=== PATIENT | female | born 1940 | race Caucasian/White ===

== ENCOUNTER → 2023-09-25 10:05 | Outpatient (REF) | payer MEDICARE, OTHER, SELFPAY ==
[2023-09-25 10:42] LABS: Hematocrit 36.5 % (37.0-47.0); Hemoglobin 12.2 g/dL (12.0-16.0); Mean Corp Hgb Conc. 33.4 g/dL (33.0-37.0); Mean Corpuscular Hgb 30.6 pg (27.0-31.0); Mean Corpuscular Volume 91.5 fL (81.0-99.0); Mean Platelet Volume 10.1 fL (7.4-10.4); Platelet Count 187 10^3/uL (130-400); Red Blood Cell Count 3.99 10^6/uL (4.20-5.40); Red Cell Dist. Width 15.7 % (11.5-14.5); White Blood Cell Count 21.3 10^3/uL (4.8-10.8)
[2023-09-25 11:18] LABS: Absolute Neutrophils -Man Diff 5.9 10^3/uL (1.4-6.5); Band Neutrophils 0 % (0-3); Segmented Neutrophils 28 % (42-75)
[2023-09-25 11:19] LABS: Anisocytosis Occasional; Eosinophils 1 % (0-6); Lymphocytes 70 % (20-51); Monocytes 1 % (2-9); Normal RBC Morphology No; Platelets Checked Yes; Poikilocytosis 1+; Smudge Cells 1+; Total Cells Counted 100; Vacuolated Segs 1+
[2023-09-25 14:29] LABS: LDH 195 U/L (120-246)
== END ==
LOC: REG 10:05
PROVIDERS: ATTENDING PHYSICIAN Internal Medicine Hematology & Oncology; FAMILY PHYSICIAN Nurse Practitioner
DX: D72.829 Elevated white blood cell count, unspecified (principal); C91.10 Chronic lymphocytic leukemia of B-cell type not having achieved remission; R10.9 Unspecified abdominal pain
CPT/HCPCS: 36415; 83615; 85025

== ENCOUNTER 2023-10-23 08:17 | Emergency (ER) | payer MEDICARE, OTHER, SELFPAY ==
[2023-10-23 08:19] VITALS: BP 113/59; BMI 25.3
[2023-10-23 08:24] VITALS: BP 113/59
--- NOTE | 2023-10-23 08:40 | ED.GENMED ---
History of Present Illness
General
Chief Complaint: Fall
Source: patient and ambulance crew
Exam Limitations: none
Time Seen by Provider: 10/23/23 08:20
Nursing documentation reviewed up to this point in time: agreed with
Travel History
Have you had any contact with someone who has COVID-19?: No
Do you have any symptoms of coronavirus? Fever > 100 degrees, chills, cough, shortness of breath, sore throat, loss of taste or smell, muscle aches, or headache?: No
History of Present Illness
History of Present Illness:
83-year-old female presents emergency department due to a fall yesterday. She was walking on stairs yesterday and landed on her left buttock. She denies hitting her head or loss of consciousness. She takes Eliquis. Today she had severe pain in
her left hip/left buttock area. EMS arrived and stated patient ambulated to the ambulance with no issues.
Past History
Past History
ED Past Medical History: Hypercholesterolemia and Other (diverticulosis, hypercholesterolemia)
ED Past Surgical History: Other (varicose vein)
Social History
Tobacco: Non-smoker
Alcohol: None
Personal:
Living: with family
Employment: Retired
Family History
Family History: Other (Noncontributory)
Review of Systems
Review of Systems
Allergies reviewed?: Yes
All Other Systems: Not applicable
Constitutional: Reports no symptoms
EENT: Reports no symptoms
Respiratory: Reports no symptoms
Cardiac: Reports no symptoms
ABD/GI: Reports no symptoms
: Reports no symptoms
Musculoskeletal: Reports back pain and other (Left buttock pain)
Skin: Reports other (Bruising left buttock)
Neurological: Reports no symptoms
Endocrine: Reports no symptoms
Hematologic/Lymphatic: Reports no symptoms
Psychiatric: Reports no symptoms
Phy Exam
Physical Exam
Physical Exam:
Physical Exam
General: no apparent distress, not acutely ill
Neck: supple. no meningeal signs. normal posterior pharynx
Heart: s1/s2 regular rate and rhythm, no murmur. equal radial
pulses.
HEENT: Pupils equal round reactive to light, EOMI
Lungs: no acute respiratory distress. clear bilaterally
Abdomen: normal bowel sounds. not tender. no CVAT
Neuro: alert and oriented. no focal neurological deficits cranial nerves II through XII intact
Skin: no rash, hematoma left buttock
Psychiatric: well kept. interactive and cooperative
Extremities: no edema. no calf tenderness. negative homans. good distal pulses
Course
Orders/Labs/Results
Orders:
Orders
10/23/23 08:36
IV Insert/Care/Rem.- Treatment PRN
Lumbar Spine Complete, 4 View [CR Lumbar Spine Comp Min 4 Vw*] Urgent
Comment:
Reason For Exam: fall, low back/buttocks contusion
10/23/23 08:38
CT Head W/o Iv Contrast Urgent
Comment:
Reason For Exam: fall on eliquis
10/23/23 09:07
Complete Blood Count/With Diff Urgent
Comprehensive Metabolic Panel Urgent
10/23/23 11:08
Morphine Sulfate 4 mg IV NOW STA
Ondansetron Injectable [Zofran] 4 mg IV NOW STA
Abnormal Lab Results
10/23/23
09:07
WBC 24.2 H 10^3/uL
(4.8-10.8)
RBC 3.90 L 10^6/uL
(4.20-5.40)
Hct 34.9 L %
(37.0-47.0)
RDW 15.4 H %
(11.5-14.5)
Abs Immat Gran (auto) 0.1 H 10^3/uL
(0-0.05)
Absolute Neuts (auto) 8.6 H 10^3/uL
(1.4-6.5)
Absolute Lymphs (auto) 14.8 H 10^3/uL
(1.2-3.4)
Neutrophils % 35.5 L %
(42.2-75.2)
Lymphocytes % 61.2 H %
(20.5-51.1)
Sodium 132 L mmol/L
(135-145)
BUN 19 H mg/dl
(7-17)
Glucose 121 H mg/dl
(70-99)
Total Protein 6.0 L g/dl
(6.3-8.2)
10/23/23 09:07
10/23/23 09:07
Vital Signs
Initial and Last Documented VS:
Initial Vital Signs
Temp Pulse Resp BP Pulse Ox
97.5 F 69 16 113/59 100
10/23/23 08:19 10/23/23 08:19 10/23/23 08:19 10/23/23 08:19 10/23/23 08:19
Last Documented Vital Signs
Temp Pulse Resp BP Pulse Ox
97.5 F 72 22 98/84 98
10/23/23 08:19 10/23/23 12:15 10/23/23 12:15 10/23/23 12:00 10/23/23 12:15
MDM/Problems Addressed
Differential Diagnosis Includes:
Intracranial hemorrhage, lumbosacral fracture
MDM/Problems Addressed:
83-year-old female with fall, buttock hematoma, stable for discharge.
Chronic conditions affecting care: Arrhythmia and Cancer (CLL)
Acute Exacerbation and/or Progression of Chronic Illness: Arrhythmia
*Radiology
Radiology exam reviewed: radiology read reviewed (CT head no acute findings, lumbar x-ray no acute findings)
*Pulse Oximetry
Patient hypoxic: no
*EKG
Interpreted by ED Provider?: NA
*Gas Engine Operator Interpretation
Rate: Gas Engine Operator- N/A
*Critical Care Note
Total Time (30-74mins, 75-104mins- exclusive of procedures): Not Applicable
Data Reviewed
Review of Other/Old Records Reveals: Labs
Source: patient
Patient Management
Social determinants of health affecting care: Living situation
Escalation/DeEscalation of care consider admission/obs:
Admit not indicated
ED Attending Note
-
Portions of this chart may have been created with voice recognition software.� Occasional wrong word or��sound alike� substitutions may have occurred due to the inherent limitations of voice recognition software.
Discharge Plan
Departure
Patient Disposition: Home (Routine Discharge)
Date of Disposition: 10/23/23
Time of Disposition: 12:12
Patient with high blood pressure during this ER visit?: Yes
Condition: Good
Discharge Problem:
Hematoma of buttock, Fall
Instructions: Preventing falls in adults, BLOOD PRESSURE, Hematoma
Prescriptions:
No Action
magnesium 200 MG tablet
200 mg PO DAILY
ascorbic acid (vitamin C) [Vitamin C] 1,000 mg Tablet
1,000 mg PO DAILY
cyanocobalamin (vitamin B-12) 1,000 mcg Tablet
1,000 mcg PO DAILY
meclizine 12.5 mg Tablet
12.5 mg PO DAILY
therapeutic multivitamin Tablet
1 tab PO DAILY
coenzyme Q10 [CoQ-10] 100 mg Capsule
200 mg PO DAILY
cholecalciferol (vitamin D3) 125 mcg (5,000 unit) Tablet
125 mcg PO DAILY
Metamucil 3.4 gram/5.4 gram Powder
2 tsp PO DAILY@1200
Glucosamine Chondroitin 550-30-1 mg Capsule
2 cap PO DAILY
Glucosamine Chondroitin 550-30-1 mg Capsule
1 cap PO QPM
Eliquis 5 MG tablet
5 mg PO BID
metoprolol succinate 25 mg Tablet Extended Release 24 Hr
25 mg PO DAILY Qty: 60 0RF
propranolol 20 mg Tablet
20 mg PO Q4HPRN PRN (Reason: rapid heart rate/palpitations) Qty: 60 0RF
Referrals:
Adri Medeiros CRNP [Family Provider] -
Interventions
Interventions:
*Risk Screen - Suicide Last Done: 10/23/23 08:19
*General Assessment Last Done: 10/23/23 08:19
*Neglect/Abuse Screening Last Done: 10/23/23 08:19
ED- Fall Risk Assessment Last Done: 10/23/23 08:19
*ED COVID-19 Vaccine History Last Done: 10/23/23 08:19
*Nursing Disposition Last Done: 10/23/23 12:30
ED-Musculoskeletal Assessment Last Done: 10/23/23 08:19
ED- Neurological Assessment Last Done: 10/23/23 08:19
ED-Skin Assessment Last Done: 10/23/23 08:19
Discharge Date and Time
Discharge Date/Time: 10/23/23 12:38
[2023-10-23 09:06] VITALS: BP 133/65
--- NOTE | 2023-10-23 09:08 | EDRN ---
the pt returned from xray and CT scan, this RN placed the pt back on the monitor, no s/s of distress, the pt is resting in stretcher in the lowest position, side rails up x2, call camara within reach, HOB elevated, the pts son is currently at the pts
bedside, will continue to monitor the pt closely
[2023-10-23 09:17] LABS: % Basophils 0.5 % (0-2); % Eosinophils 0.2 % (0-6); % Immature Granulocytes 0.4 % (0-0.5); % Lymphocytes 61.2 % (20.5-51.1); % Monocytes 2.2 % (1.7-9.3); % Neutrophils 35.5 % (42.2-75.2); Absolute Basophils 0.1 10^3/uL (0-0.2); Absolute Eosinophils 0.1 10^3/uL (0-0.7); Absolute Immature Granulocytes 0.1 10^3/uL (0-0.05); Absolute Lymphocytes 14.8 10^3/uL (1.2-3.4); Absolute Monocytes 0.5 10^3/uL (0.1-0.6); Absolute Neutrophils 8.6 10^3/uL (1.4-6.5); Hematocrit 34.9 % (37.0-47.0); Mean Corp Hgb Conc. 34.4 g/dL (33.0-37.0); Mean Corpuscular Hgb 30.8 pg (27.0-31.0); Mean Corpuscular Volume 89.5 fL (81.0-99.0); Mean Platelet Volume 9.7 fL (7.4-10.4); Nucleated Red Blood Cells % 0 %; Platelet Count 179 10^3/uL (130-400); Red Cell Dist. Width 15.4 % (11.5-14.5); White Blood Cell Count 24.2 10^3/uL (4.8-10.8)
[2023-10-23 09:26] LABS: ALT (SGPT) 19 U/L (0-35); AST (SGOT) 28 U/L (14-36); Albumin 3.8 g/dl (3.5-5.0); Alkaline Phosphatase 95 U/L (38-126); Blood Urea Nitrogen 19 mg/dl (7-17); Carbon Dioxide 23 mmol/L (22-30); Chloride 106 mmol/L (98-107); Estimated Creatinine Clearance 41 ml/min; Glucose 121 mg/dl (70-99); Potassium 4.8 mmol/L (3.5-5.1); Sodium 132 mmol/L (135-145); Total Bilirubin 1.2 mg/dl (0.2-1.3); eGFR > 60.00
[2023-10-23 10:00] VITALS: BP 120/71
--- NOTE | 2023-10-23 10:36 | EDRN ---
the pt pressed the call camara and this RN entered the pts room, the pt stated to this RN that she needed to use the bathroom, the pt was able to ambulate to the bathroom and back to the stretcher with no issues, the pt is resting in stretcher in the
lowest position, side rails up x2, call camara within reach, HOB elevated, no s/s of distress, will continue to monitor the pt closely
[2023-10-23 11:05] VITALS: BP 139/83
[2023-10-23] MEDS: ZOFRAN 4 MG IV (11:24)
[2023-10-23] MEDS: MORPHINE SULFATE 4 MG IV (11:24)
[2023-10-23 12:00] VITALS: BP 98/84
== END 2023-10-23 12:38 | disposition home or self-care (01) ==
LOC: EMR 08:17
PROVIDERS: EMERGENCY PHYSICIAN Emergency Medicine; FAMILY PHYSICIAN Nurse Practitioner
DX: S30.0XXA Contusion of lower back and pelvis, initial encounter (principal); M25.552 Pain in left hip; W10.9XXA Fall (on) (from) unspecified stairs and steps, initial encounter; Y93.01 Activity, walking, marching and hiking; I48.91 Unspecified atrial fibrillation; E78.00 Pure hypercholesterolemia, unspecified; C91.10 Chronic lymphocytic leukemia of B-cell type not having achieved remission; K57.90 Diverticulosis of intestine, part unspecified, without perforation or abscess without bleeding; M19.90 Unspecified osteoarthritis, unspecified site; Z79.01 Long term (current) use of anticoagulants
CPT/HCPCS: 99284; 96374; 96375; 70450; 72110; 80053; 85025

== ENCOUNTER → 2023-12-25 10:31 | Outpatient (REF) | payer MEDICARE, OTHER, SELFPAY ==
[2023-12-25 11:38] LABS: % Basophils 0.5 % (0-2); % Eosinophils 0.7 % (0-6); % Immature Granulocytes 0.2 % (0-0.5); % Lymphocytes 73.9 % (20.5-51.1); % Monocytes 2.1 % (1.7-9.3); % Neutrophils 22.6 % (42.2-75.2); Absolute Basophils 0.1 10^3/uL (0-0.2); Absolute Eosinophils 0.2 10^3/uL (0-0.7); Absolute Immature Granulocytes 0.1 10^3/uL (0-0.05); Absolute Lymphocytes 18.2 10^3/uL (1.2-3.4); Absolute Monocytes 0.5 10^3/uL (0.1-0.6); Absolute Neutrophils 5.6 10^3/uL (1.4-6.5); Hematocrit 37.1 % (37.0-47.0); Hemoglobin 12.3 g/dL (12.0-16.0); Mean Corp Hgb Conc. 33.2 g/dL (33.0-37.0); Mean Corpuscular Hgb 31.1 pg (27.0-31.0); Mean Corpuscular Volume 93.9 fL (81.0-99.0); Mean Platelet Volume 9.9 fL (7.4-10.4); Nucleated Red Blood Cells % 0 %; Platelet Count 186 10^3/uL (130-400); Red Blood Cell Count 3.95 10^6/uL (4.20-5.40); Red Cell Dist. Width 14.6 % (11.5-14.5); White Blood Cell Count 24.7 10^3/uL (4.8-10.8)
[2023-12-25 13:17] LABS: ALT (SGPT) 13 U/L (0-35); AST (SGOT) 27 U/L (14-36); Albumin 3.8 g/dl (3.5-5.0); Alkaline Phosphatase 74 U/L (38-126); Blood Urea Nitrogen 19 mg/dl (7-17); Calcium 9.4 mg/dl (8.4-10.2); Carbon Dioxide 20 mmol/L (22-30); Chloride 107 mmol/L (98-107); Glucose 90 mg/dl (70-99); Potassium 4.8 mmol/L (3.5-5.1); Sodium 138 mmol/L (135-145); Total Bilirubin 0.7 mg/dl (0.2-1.3); Total Protein 6.1 g/dl (6.3-8.2); eGFR > 60.00
[2023-12-25 14:20] LABS: LDH 209 U/L (120-246)
== END ==
LOC: REG 10:31
PROVIDERS: ATTENDING PHYSICIAN Internal Medicine Hematology & Oncology; FAMILY PHYSICIAN Nurse Practitioner
DX: D72.829 Elevated white blood cell count, unspecified (principal); C91.10 Chronic lymphocytic leukemia of B-cell type not having achieved remission; R10.9 Unspecified abdominal pain
CPT/HCPCS: 36415; 80053; 83615; 85025

== ENCOUNTER → 2024-01-01 09:57 | Outpatient (REF) | payer MEDICARE, OTHER, SELFPAY | LOC: RAD 09:57 | PROVIDERS: ATTENDING PHYSICIAN Nurse Practitioner | DX: R10.9 Unspecified abdominal pain (principal) | CPT/HCPCS: 74177; Q9967 ==

== ENCOUNTER → 2024-05-01 06:24 | Day surgery (SDC) | payer MEDICARE, OTHER, SELFPAY | LOC: GI 06:24 | PROVIDERS: ATTENDING PHYSICIAN Specialist | DX: Z12.11 Encounter for screening for malignant neoplasm of colon (principal); Z86.010 Personal history of colon polyps; K57.30 Diverticulosis of large intestine without perforation or abscess without bleeding; K64.8 Other hemorrhoids; Z80.0 Family history of malignant neoplasm of digestive organs; K63.89 Other specified diseases of intestine | CPT/HCPCS: 45380; 88305 ==

== ENCOUNTER → 2024-05-13 10:12 | Outpatient (REF) | payer MEDICARE, OTHER, SELFPAY ==
[2024-05-13 10:59] LABS: Hematocrit 36.1 % (37.0-47.0); Hemoglobin 12.2 g/dL (12.0-16.0); Mean Corp Hgb Conc. 33.8 g/dL (33.0-37.0); Mean Corpuscular Hgb 31.9 pg (27.0-31.0); Mean Corpuscular Volume 94.5 fL (81.0-99.0); Mean Platelet Volume 10.4 fL (7.4-10.4); Platelet Count 153 10^3/uL (130-400); Red Blood Cell Count 3.82 10^6/uL (4.20-5.40); Red Cell Dist. Width 14.9 % (11.5-14.5); White Blood Cell Count 31.4 10^3/uL (4.8-10.8)
[2024-05-13 11:23] LABS: % Basophils 0.4 % (0-2); % Eosinophils 0.8 % (0-6); % Immature Granulocytes 0.1 % (0-0.5); % Lymphocytes 79.2 % (20.5-51.1); % Monocytes 4.1 % (1.7-9.3); % Neutrophils 15.4 % (42.2-75.2); Absolute Basophils 0.1 10^3/uL (0-0.2); Absolute Eosinophils 0.3 10^3/uL (0-0.7); Absolute Lymphocytes 24.9 10^3/uL (1.2-3.4); Absolute Monocytes 1.3 10^3/uL (0.1-0.6); Absolute Neutrophils 4.9 10^3/uL (1.4-6.5); Nucleated Red Blood Cells % 0 %
[2024-05-13 11:25] LABS: ALT (SGPT) 17 U/L (0-35); AST (SGOT) 25 U/L (14-36); Albumin 3.7 g/dl (3.5-5.0); Alkaline Phosphatase 71 U/L (38-126); Blood Urea Nitrogen 19 mg/dl (7-17); Carbon Dioxide 26 mmol/L (22-30); Chloride 105 mmol/L (98-107); Glucose 90 mg/dl (70-99); LDH 197 U/L (120-246); Potassium 4.7 mmol/L (3.5-5.1); Sodium 139 mmol/L (135-145); Total Bilirubin 0.6 mg/dl (0.2-1.3); Total Protein 5.8 g/dl (6.3-8.2); eGFR > 60.00
== END ==
LOC: REG 10:12
PROVIDERS: ATTENDING PHYSICIAN Internal Medicine Hematology & Oncology; FAMILY PHYSICIAN Nurse Practitioner
DX: D72.829 Elevated white blood cell count, unspecified (principal); C91.10 Chronic lymphocytic leukemia of B-cell type not having achieved remission; R10.9 Unspecified abdominal pain
CPT/HCPCS: 36415; 80053; 83615; 85025

== ENCOUNTER → 2024-07-20 11:35 | Outpatient (REF) | payer MEDICARE, OTHER, SELFPAY | LOC: RAD 11:35 | PROVIDERS: ATTENDING PHYSICIAN Nurse Practitioner | DX: R91.1 Solitary pulmonary nodule (principal) | CPT/HCPCS: 71250 ==

== ENCOUNTER → 2024-09-23 12:28 | Outpatient (REF) | payer MEDICARE, OTHER, SELFPAY ==
[2024-09-23 14:22] LABS: Hematocrit 38.6 % (37.0-47.0); Hemoglobin 12.5 g/dL (12.0-16.0); Mean Corp Hgb Conc. 32.4 g/dL (33.0-37.0); Mean Corpuscular Hgb 30.7 pg (27.0-31.0); Mean Corpuscular Volume 94.8 fL (81.0-99.0); Platelet Count 161 10^3/uL (130-400); Red Blood Cell Count 4.07 10^6/uL (4.20-5.40); Red Cell Dist. Width 14.9 % (11.5-14.5); White Blood Cell Count 37.8 10^3/uL (4.8-10.8)
[2024-09-23 14:39] LABS: % Basophils 0.5 % (0-2); % Eosinophils 2.1 % (0-6); % Immature Granulocytes 0.3 % (0-0.5); % Lymphocytes 77.2 % (20.5-51.1); % Monocytes 2.4 % (1.7-9.3); % Neutrophils 17.5 % (42.2-75.2); Absolute Basophils 0.2 10^3/uL (0-0.2); Absolute Eosinophils 0.8 10^3/uL (0-0.7); Absolute Immature Granulocytes 0.1 10^3/uL (0-0.05); Absolute Lymphocytes 29.2 10^3/uL (1.2-3.4); Absolute Monocytes 0.9 10^3/uL (0.1-0.6); Absolute Neutrophils 6.6 10^3/uL (1.4-6.5); Nucleated Red Blood Cells % 0 %
[2024-09-23 14:45] LABS: ALT (SGPT) 18 U/L (0-35); AST (SGOT) 25 U/L (14-36); Albumin 3.9 g/dl (3.5-5.0); Alkaline Phosphatase 105 U/L (38-126); Blood Urea Nitrogen 23 mg/dl (7-17); Carbon Dioxide 27 mmol/L (22-30); Chloride 102 mmol/L (98-107); Glucose 83 mg/dl (70-99); LDH 214 U/L (120-246); Potassium 5.2 mmol/L (3.5-5.1); Sodium 136 mmol/L (135-145); Total Bilirubin 0.8 mg/dl (0.2-1.3); Total Protein 6.2 g/dl (6.3-8.2); eGFR > 60.00
[2024-09-24 00:22] LABS: IgA 106 mg/dl (70-400); IgG 653 mg/dl (700-1600); IgM 48 mg/dl (40-230)
== END ==
LOC: REG 12:28
PROVIDERS: ATTENDING PHYSICIAN Internal Medicine Hematology & Oncology; FAMILY PHYSICIAN Nurse Practitioner
DX: D72.829 Elevated white blood cell count, unspecified (principal); C91.10 Chronic lymphocytic leukemia of B-cell type not having achieved remission; R10.9 Unspecified abdominal pain; R91.1 Solitary pulmonary nodule
CPT/HCPCS: 36415; 80053; 82784; 83615; 85025

== ENCOUNTER → 2024-12-15 13:45 | Outpatient (REF) | payer MEDICARE, OTHER, SELFPAY ==
[2024-12-15 17:43] LABS: Urine Albumin Negative (Neg - Trace); Urine Bilirubin Negative (Negative); Urine Character Clear (Clear); Urine Color Yellow; Urine Glucose Negative (Negative); Urine Ketone Negative (Negative); Urine Leukocyte 2+ (Negative); Urine Nitrite Positive (Negative); Urine Occult Blood Negative (Negative); Urine Urobilinogen Negative (Neg - 1+)
[2024-12-15 17:51] LABS: Urine Squamous Cell >30 /LPF (Few)
[2024-12-15 17:52] LABS: Urine Bacteria Many (Negative); Urine Red Blood Cell 0-2 /HPF (0-2); Urine White Cell 50-60 /HPF (0-5)
== END ==
LOC: CLAB 13:45
PROVIDERS: ATTENDING PHYSICIAN Nurse Practitioner; REFERRING PHYSICIAN Nurse Practitioner
DX: N39.0 Urinary tract infection, site not specified (principal)
CPT/HCPCS: 81003; 81015; 87077; 87086; 87186

== ENCOUNTER → 2025-02-02 10:04 | Outpatient (REF) | payer MEDICARE, OTHER, SELFPAY ==
[2025-02-02 11:37] LABS: Hematocrit 36.9 % (37.0-47.0); Hemoglobin 12.0 g/dL (12.0-16.0); Mean Corp Hgb Conc. 32.5 g/dL (33.0-37.0); Mean Corpuscular Volume 94.6 fL (81.0-99.0); Platelet Count 125 10^3/uL (130-400); Red Cell Dist. Width 15.2 % (11.5-14.5)
[2025-02-02 12:06] LABS: ALT (SGPT) 14 U/L (0-35); AST (SGOT) 21 U/L (14-36); Albumin 3.8 g/dl (3.5-5.0); Alkaline Phosphatase 80 U/L (38-126); Blood Urea Nitrogen 22 mg/dl (7-17); Calcium 8.6 mg/dl (8.4-10.2); Carbon Dioxide 26 mmol/L (22-30); Chloride 106 mmol/L (98-107); Glucose 85 mg/dl (70-99); HDL Cholesterol 47 mg/dl; LDL Cholesterol, Calculated 166 mg/dl; Potassium 5.3 mmol/L (3.5-5.1); Sodium 137 mmol/L (135-145); Total Protein 5.9 g/dl (6.3-8.2); Very Low Density Lipoprotein 19 mg/dl (0-30); eGFR > 60.00
[2025-02-02 12:35] LABS: TSH 6.75 uIU/ml (0.47-4.68)
[2025-02-02 13:05] LABS: Nucleated Red Blood Cells % 0 %
== END ==
LOC: REG 10:04
PROVIDERS: ATTENDING PHYSICIAN Nurse Practitioner
DX: C91.10 Chronic lymphocytic leukemia of B-cell type not having achieved remission (principal); F34.1 Dysthymic disorder; R10.9 Unspecified abdominal pain; K57.30 Diverticulosis of large intestine without perforation or abscess without bleeding; K59.01 Slow transit constipation; I48.0 Paroxysmal atrial fibrillation; E78.00 Pure hypercholesterolemia, unspecified
CPT/HCPCS: 36415; 80053; 80061; 84443; 85025

== ENCOUNTER → 2025-03-31 09:30 | Outpatient (REF) | payer MEDICARE, OTHER, SELFPAY ==
[2025-03-31 10:34] LABS: Hematocrit 37.7 % (37.0-47.0); Hemoglobin 11.9 g/dL (12.0-16.0); Mean Corp Hgb Conc. 31.6 g/dL (33.0-37.0); Mean Corpuscular Volume 95.4 fL (81.0-99.0); Nucleated Red Blood Cells % 0 %; Platelet Count 133 10^3/uL (130-400); Red Cell Dist. Width 15.1 % (11.5-14.5)
[2025-03-31 11:25] LABS: Free T3 3.59 pg/ml (2.77-5.27)
[2025-03-31 11:34] LABS: LDH 201 U/L (120-246)
[2025-03-31 11:39] LABS: TSH 9.12 uIU/ml (0.47-4.68)
== END ==
LOC: REG 09:30
PROVIDERS: ATTENDING PHYSICIAN Internal Medicine Hematology & Oncology; FAMILY PHYSICIAN Nurse Practitioner
DX: E03.9 Hypothyroidism, unspecified (principal); D72.829 Elevated white blood cell count, unspecified; C91.10 Chronic lymphocytic leukemia of B-cell type not having achieved remission; R10.9 Unspecified abdominal pain; R91.1 Solitary pulmonary nodule
CPT/HCPCS: 36415; 82784; 83615; 84439; 84443; 84481; 85025; 86376

== ENCOUNTER → 2025-06-30 10:03 | Outpatient (REF) | payer MEDICARE, OTHER, SELFPAY ==
[2025-06-30 11:34] LABS: Hematocrit 38.1 % (37.0-47.0); Hemoglobin 12.3 g/dL (12.0-16.0); Mean Corp Hgb Conc. 32.3 g/dL (33.0-37.0); Mean Corpuscular Volume 96.2 fL (81.0-99.0); Platelet Count 130 10^3/uL (130-400); Red Cell Dist. Width 15.5 % (11.5-14.5)
[2025-06-30 11:54] LABS: LDH 194 U/L (120-246)
[2025-06-30 11:55] LABS: Nucleated Red Blood Cells % 0 %
[2025-06-30 12:19] LABS: Free T3 2.80 pg/ml (2.77-5.27)
[2025-06-30 12:25] LABS: TSH 2.89 uIU/ml (0.47-4.68)
== END ==
LOC: REG 10:03
PROVIDERS: ATTENDING PHYSICIAN Internal Medicine Hematology & Oncology; FAMILY PHYSICIAN Nurse Practitioner
DX: E03.9 Hypothyroidism, unspecified (principal); D72.829 Elevated white blood cell count, unspecified; C91.10 Chronic lymphocytic leukemia of B-cell type not having achieved remission; R10.9 Unspecified abdominal pain; R91.1 Solitary pulmonary nodule
CPT/HCPCS: 36415; 82784; 83615; 84436; 84439; 84443; 84481; 85025